=== PATIENT | female | born 1960 | race African-American/Black ===

== ENCOUNTER 2022-03-02 12:48 | Emergency (ER) | payer MEDICAID, OTHER ==
[~2022-03-02] VITALS: Ht 172.7 cm; Wt 152.0 kg
[2022-03-02] MEDS ORDERED: ALBUTEROL SULF HFA 90MCG INH 200DOSE IN SCH (14:00)
[2022-03-02] MEDS ORDERED: ACETAMINOPHEN 500 MG TAB PO ONE (16:00)
[2022-03-02] MEDS ORDERED: DexAMETHasone SOD PHOS 10MG/1ML VIAL INJ IM ONE (16:00)
[2022-03-02] MEDS ORDERED: cefTRIAXone SOD 1,000 MG VL IM ONE (16:00)
[2022-03-02] MEDS ORDERED: PROM1SOL4 PO (16:02)
[2022-03-02] MEDS ORDERED: METH4PAK PO (16:02)
[2022-03-02] MEDS ORDERED: AZIT500T66 PO (16:02)
[2022-03-02 16:44] VITALS: BP 138/92
== END 2022-03-02 17:05 | disposition home or self-care (01) ==
LOC: ER 12:48
DX: U07.1 COVID-19 (principal); J20.9 Acute bronchitis, unspecified; J03.90 Acute tonsillitis, unspecified; I10 Essential (primary) hypertension; E11.9 Type 2 diabetes mellitus without complications; J44.9 Chronic obstructive pulmonary disease, unspecified
CPT/HCPCS: 71045; 96372; 99284; J0696; J1100

== ENCOUNTER → 2024-02-20 | Outpatient (CLI) | payer MEDICAID ==
[~2024-02-20] VITALS: Ht 172.7 cm; Wt 156.5 kg
[~2024-02-20] MED LIST: AZIT500T66 PO; METH4PAK PO; PROM1SOL4 PO
[2024-02-20] MEDS: REGADENOSON 0.4 MG/5 ML SYRG IV ONE ×2 (11:23→11:38)
== END | disposition home or self-care (01) ==
LOC: XYW 08:22
PROVIDERS: ATTEND Specialist
DX: I11.0 Hypertensive heart disease with heart failure (principal); I50.9 Heart failure, unspecified; J44.9 Chronic obstructive pulmonary disease, unspecified; E78.5 Hyperlipidemia, unspecified; R06.09 Other forms of dyspnea; R42 Dizziness and giddiness; E11.9 Type 2 diabetes mellitus without complications
CPT/HCPCS: 78452; 93017; A9500; J2785